=== PATIENT | male | born 1960 | race Caucasian/White ===

== ENCOUNTER 2021-04-18 22:13 | Inpatient (IN) | payer MEDICAID ==
[~2021-04-18] VITALS: Ht 172.7 cm; Wt 65.3 kg
[2021-04-18] MEDS ORDERED: ALBUTEROL (0.083%) 2.5MG/3ML NEB HHN STA (22:58)
[2021-04-18] MEDS ORDERED: LEVOFLOXACIN 750MG PREMIX 150 ML IV STA (22:58)
[2021-04-18] MEDS ORDERED: MAGNESIUM 2 G PREMIX 50 ML IV STA (22:58)
[2021-04-18] MEDS ORDERED: METHYLPREDNISOLONE SOD SUCC 125 MG/2 ML VIAL IV STA (22:58)
[2021-04-18] MEDS ORDERED: IPRATROPIUM BROMIDE (0.02%) 0.5MG/2.5ML NEB HHN STA (22:58)
[2021-04-18 23:06] LABS: HEMATOCRIT. 42.8 % (42.0-52.0); HEMOGLOBIN. 14.9 g/dL (14.0-18.0); MEAN CORPUSCULAR VOLUME 89.1 fL (80.0-94.0); PLATELET 152 x1000/uL (130-400); RED CELL DISTRIBUTION WIDTH 14.3 % (11.6-14.6)
[2021-04-18 23:12] LABS: CHLORIDE 108 mEq/L (98-107)
[2021-04-18 23:20] LABS: PLATELET ESTIMATE NORMAL
[2021-04-19] MEDS ORDERED: ALBUTEROL (0.5%) 2.5MG/0.5ML NEB HHN ONE ×2 (01:30)
[2021-04-19 04:00] VITALS: BP 148/88
[2021-04-19] MEDS ORDERED: IPRA4AER INH (05:52)
[2021-04-19] MEDS ORDERED: ALBU18HF2 IH (05:52)
[2021-04-19] MEDS ORDERED: HYDRALAZINE 20MG/ML VIAL IV PRN (06:00)
[2021-04-19] MEDS ORDERED: ONDANSETRON HCL 4MG/2ML INJ IV PRN (06:00)
[2021-04-19] MEDS ORDERED: IPRATROPIUM/ALBUTEROL 0.5-3(2.5)MG/3ML NEB HHN PRN (06:00)
[2021-04-19] MEDS ORDERED: CLONIDINE 0.1MG TABLET PO PRN (06:00)
[2021-04-19] MEDS ORDERED: HYDROCODONE/ACETAMINOPHEN 5/325MG TABLET PO PRN (06:00)
[2021-04-19] MEDS ORDERED: MAGNESIUM/ALUMINUM HYDROXIDE/SIMETHICONE 30ML UDC PO PRN (06:00)
[2021-04-19] MEDS ORDERED: DOCUSATE SODIUM 100MG CAPSULE PO PRN (06:00)
[2021-04-19] MEDS ORDERED: DIPHENHYDRAMINE 50MG/ML VIAL IV PRN (06:00)
[2021-04-19] MEDS ORDERED: GUAIFENESIN 200MG/10ML SUGAR FREE UDC PO PRN (06:00)
[2021-04-19] MEDS ORDERED: ACETAMINOPHEN 325MG TABLET PO PRN (06:00)
[2021-04-19] MEDS ORDERED: LORAZEPAM 2MG/ML CPJ IV PRN (06:00)
[2021-04-19] MEDS ORDERED: MORPHINE SULFATE 2 MG/ML CPJ (NOT FOR IM USE) IV PRN (06:00)
[2021-04-19] MEDS: SODIUM CHLORIDE 0.9% INJ 3ML FLUSH IVF SCH ×3 (06:36→21:38)
[2021-04-19] MEDS: METHYLPREDNISOLONE SOD SUCC 125 MG/2 ML VIAL IV SCH ×3 (06:36→21:38)
[2021-04-19 08:00] VITALS: BP 128/83
[2021-04-19] MEDS: ENOXAPARIN 40MG/0.4ML SYR SUBCUT SCH (08:49)
[2021-04-19 11:48] LABS: *BARBITURATES SCREEN URINE NEGATIVE (NEGATIVE); *BENZODIAZEPINES SCREEN URINE NEGATIVE (NEGATIVE)
[2021-04-19 11:49] LABS: *AMPHETAMINES SCREEN URINE NEGATIVE (NEGATIVE); *COCAINE SCREEN URINE NEGATIVE (NEGATIVE); METHADONE URINE SCREEN NEGATIVE (NEGATIVE); OPIATES URINE SCREEN PRESUMTIVE POSITIVE (NEGATIVE); PHENCYCLIDINE URINE SCREEN NEGATIVE (NEGATIVE)
[2021-04-19 11:50] LABS: CANNABINOID URINE SCREEN NEGATIVE (NEGATIVE)
[2021-04-19 12:14] VITALS: BP 110/76
[2021-04-19 16:00] VITALS: BP 143/84
[2021-04-19 20:00] VITALS: BP 126/74
[2021-04-19] MEDS ORDERED: LEVOFLOXACIN 500MG PREMIX 100 ML IV SCH (21:00)
[2021-04-19] MEDS: IPRATROPIUM/ALBUTEROL 0.5-3(2.5)MG/3ML NEB HHN SCH (21:58)
[2021-04-19 23:50] VITALS: BP 117/70
[2021-04-20] MEDS: IPRATROPIUM/ALBUTEROL 0.5-3(2.5)MG/3ML NEB HHN SCH ×4 (01:43→12:35)
[2021-04-20 04:10] VITALS: BP 134/83
[2021-04-20 04:58] LABS: HEMATOCRIT. 44.7 % (42.0-52.0); HEMOGLOBIN. 15.2 g/dL (14.0-18.0); MEAN CORPUSCULAR HEMOGLOBIN 30.8 pg (28.0-32.0); MEAN CORPUSCULAR VOLUME 90.4 fL (80.0-94.0); MEAN PLATELET VOLUME 10.3 fl (7.4-10.4); PLATELET 159 x1000/uL (130-400); RED BLOOD CELL COUNT 4.94 mill/uL (4.7-6.1); RED CELL DISTRIBUTION WIDTH 14.2 % (11.6-14.6)
[2021-04-20] MEDS: METHYLPREDNISOLONE SOD SUCC 125 MG/2 ML VIAL IV SCH (05:06)
[2021-04-20] MEDS: SODIUM CHLORIDE 0.9% INJ 3ML FLUSH IVF SCH (05:07)
[2021-04-20 05:08] LABS: CHLORIDE 107 mEq/L (98-107)
[2021-04-20 08:00] VITALS: BP 113/80
[2021-04-20] MEDS: ENOXAPARIN 40MG/0.4ML SYR SUBCUT SCH (09:17)
[2021-04-20 10:16] VITALS: BP 120/80
[2021-04-20 11:03] LABS: PLATELET ESTIMATE NORMAL
[2021-04-20 12:00] VITALS: BP 126/68
[2021-04-20] MEDS ORDERED: LEVOFLOXACIN 500MG TABLET PO SCH (21:00)
== END 2021-04-20 14:22 | disposition home or self-care (01) | DRG 140 ==
LOC: ER 22:13 → 6WST 04-19 00:14 → ENRESERV 04-19 03:13
PROVIDERS: ADMIT Internal Medicine; ATTEND Internal Medicine
DX: J44.1 Chronic obstructive pulmonary disease with (acute) exacerbation (principal); J96.20 Acute and chronic respiratory failure, unspecified whether with hypoxia or hypercapnia; F17.210 Nicotine dependence, cigarettes, uncomplicated; Z20.822 Contact with and (suspected) exposure to COVID-19
CPT/HCPCS: 36415; 71045; 80053; 80305; 83880; 84484; 85025; 87426; 93005; 93970; 94640; 99285; J1650; J1956; J2930; J3475